=== PATIENT | female | born 1975 | race Caucasian/White ===

== ENCOUNTER 2016-12-19 16:40 | Emergency (ER) | payer MEDICAID ==
--- NOTE | 2016-12-19 17:07 | ER Document Report ---
ED Medical Screen (RME) - General Stated Complaint: COUGHING/WHEEZING Notes: 41 yo female c/o cough, headache x 2 weeks. daughter with + flu TRAVEL OUTSIDE OF THE [place] IN LAST 30 DAYS: No - Related Data Allergies/Adverse Reactions: No Known Allergies Allergy (Verified 04/25/16 11:42) Past Medical History GI Medical History: Reports: Hx Hiatal Hernia Musculoskeltal Medical History: Reports Hx Arthritis Past Surgical History: Reports: Hx Hysterectomy, Hx Tonsillectomy - Immunizations Hx Diphtheria, Pertussis, Tetanus Vaccination: Yes Physical Exam - Vital signs Vitals: Temp Pulse Resp BP Pulse Ox 98.0 F 110 H 16 138/82 H 95 12/19/16 16:48 12/19/16 16:48 12/19/16 16:48 12/19/16 16:48 12/19/16 16:48 Course - Vital Signs Vital signs: Temp Pulse Resp BP Pulse Ox 98.0 F 110 H 16 138/82 H 95 12/19/16 16:48 12/19/16 16:48 12/19/16 16:48 12/19/16 16:48 12/19/16 16:48
--- NOTE | 2016-12-19 18:30 | ER Document Report ---
HPI - HPI Patient complains to provider of: cough, congestioin, fever, wheeze Onset: Other - 2 weeks Quality of pain: Achy Pain Level: 2 Context: 41 yo smoker female with cough, congestion, wheeze, fever for 2 weeks. No SOB or chest pain. No abd. pain. Associated Symptoms: None Exacerbated by: Denies Relieved by: Denies Similar symptoms previously: No Recently seen / treated by doctor: No - ROS ROS below otherwise negative: Yes Systems Reviewed and Negative: Yes All other systems reviewed and negative Past Medical History - General Information source: Patient - Social History Smoking Status: Current Every Day Smoker Chew tobacco use (# tins/day): No Frequency of alcohol use: None Drug Abuse: None Lives with: Family Family History: Reviewed & Not Pertinent Patient has suicidal ideation: No Patient has homicidal ideation: No Renal/ Medical History: Denies: Hx Peritoneal Dialysis GI Medical History: Reports: Hx Hiatal Hernia Musculoskeltal Medical History: Reports Hx Arthritis Past Surgical History: Reports: Hx Hysterectomy, Hx Tonsillectomy - Immunizations Hx Diphtheria, Pertussis, Tetanus Vaccination: Yes Vertical Provider Document - CONSTITUTIONAL Agree With Documented VS: Yes Exam Limitations: No Limitations General Appearance: No Apparent Distress - INFECTION CONTROL TRAVEL OUTSIDE OF THE [place] IN LAST 30 DAYS: No - HEENT HEENT: Normocephalic, PERRLA, Pharyngeal Erythema. negative: Conjuctival Injection, Tympanic Membrane Red, Tympanic Membrane Bulging - NECK Neck: Supple, Lymphadenopathy-Left, Lymphadenopathy-Right - RESPIRATORY Respiratory: Breath Sounds Normal, No Respiratory Distress O2 Sat by Pulse Oximetry: 95 - CARDIOVASCULAR Cardiovascular: Regular Rate, Regular Rhythm - GI/ABDOMEN Gastrointestinal: Abdomen Soft, Abdomen Non-Tender, No Organomegaly - BACK Back: Normal Inspection - MUSCULOSKELETAL/EXTREMETIES Musculoskeletal/Extremeties: CORRINE NAVARRETE - NEURO Level of Consciousness: Awake, Alert - DERM Integumentary: Warm, Dry, No Rash Course - Vital Signs Vital signs: Temp Pulse Resp BP Pulse Ox 98.0 F 110 H 16 138/82 H 95 12/19/16 16:48 12/19/16 16:48 12/19/16 16:48 12/19/16 16:48 12/19/16 16:48 Discharge - Discharge Clinical Impression: Upper respiratory infection Qualifiers: URI type: unspecified URI Qualified Code(s): J06.9 - Acute upper respiratory infection, unspecified Condition: Good Disposition: HOME, SELF-CARE Instructions: Acetaminophen, Upper Respiratory Illness ([facility]), Inhaled Bronchodilators ([facility]), Stop Smoking ([facility]) Additional Instructions: stop smoking use the inhaler for the cough every 3 hours to er if worse see [facility] for follow up cool mist humidifier, wash it daily drink plenty of fluids Prescriptions: Albuterol Sulfate [Proair HFA Inhalation Aerosol 8.5 gm MDI] 2 puff IH Q3HP PRN #1 [email or web address] PRN Reason: Forms: Return to Work Referrals: JORJE FALLON, PREPARATION DEPARTMENT SUPERVISOR-C [Primary Care Provider] - Follow up as needed
[2016-12-19 19:13] VITALS: BP 113/76
== END 2016-12-19 19:09 | disposition home or self-care (01) ==
LOC: ER 16:40
DX: J06.9 Acute upper respiratory infection, unspecified (principal); R50.9 Fever, unspecified; R06.2 Wheezing; F17.200 Nicotine dependence, unspecified, uncomplicated; Z90.710 Acquired absence of both cervix and uterus
CPT/HCPCS: 99283

== ENCOUNTER 2018-04-05 23:59 | Emergency (ER) | payer MEDICAID ==
[2018-04-06 00:14] VITALS: BP 138/87
[2018-04-06] MEDS ORDERED: SULFAMETHOXAZOLE/TRIMETHOPRIM 800-160 MG TABLET PO ONE (00:54)
[2018-04-06] MEDS ORDERED: HYDROCODONE/ACETAMINOPHEN 5-325 MG (6 TAB/ER DISP) PO PRN (00:54)
[2018-04-06] MEDS ORDERED: IBUPROFEN 600 MG TABLET PO ONE (00:54)
--- NOTE | 2018-04-06 01:00 | ER Document Report ---
ED Skin Rash/Insect Bite/Abscs - General Chief Complaint: Abscess Stated Complaint: POSSIBLE INSECT BITE ON NECK Time Seen by Provider: 04/06/18 00:23 Mode of Arrival: Ambulatory Information source: Patient TRAVEL OUTSIDE OF THE [place] IN LAST 30 DAYS: No - HPI Patient complains to provider of: Tender/swollen area Notes: Patient is here with complaints of tender area to the left posterior neck. She states that it has been present for about a week now. She is not sure if she got bit by something or had an ingrown hair but it is gotten somewhat more sore over the last few days. She has attempted to drain it and states that she got some clear and bloody fluid from it but no purulent drainage. No fevers. No nausea, vomiting, diarrhea. No difficulty breathing or swelling. Pain is worse with touching the area as well as turning her head. No other rashes. She denies any other complaints at this time. - Related Data Allergies/Adverse Reactions: No Known Allergies Allergy (Verified 12/19/16 17:06) Past Medical History - Social History Smoking Status: Current Every Day Smoker Family History: Reviewed & Not Pertinent Renal/ Medical History: Denies: Hx Peritoneal Dialysis GI Medical History: Reports: Hx Hiatal Hernia Musculoskeltal Medical History: Reports Hx Arthritis Past Surgical History: Reports: Hx Hysterectomy, Hx Tonsillectomy - Immunizations Hx Diphtheria, Pertussis, Tetanus Vaccination: Yes Review of Systems - Review of Systems -: Yes All other systems reviewed and negative Physical Exam - Vital signs Vitals: Temp Pulse BP Pulse Ox 98.6 F 94 138/87 H 95 04/06/18 00:13 04/06/18 00:13 04/06/18 00:13 04/06/18 00:13 - Notes Notes: GENERAL: alert, cooperative, nontoxic, no distress. HEAD: normocephalic, atraumatic EYES: conjunctiva pink without discharge, no external redness or swelling. EARS: no external swelling, no external redness NOSE: atraumatic, no external swelling MOUTH/THROAT: mucous membranes moist and pink NECK: soft, supple, full range of motion, no meningismus. CHEST: no distress, lungs clear and equal throughout. No wheezing, rales, rhonchi. CARDIAC: regular rate and rhythm, no murmur, normal capillary refill, normal pulses. BACK: full range of motion, no CVA tenderness. EXTREMITIES: full range of motion of all extremities. No redness, no swelling. NEURO: alert and oriented 3, no focal deficits, full range of motion of all extremities. PYSCH: appropriate mood, affect. Patient is cooperative. SKIN: pink, warm, dry, no rash. 1 cm indurated abscess to the left posterior neck. Overlying redness with no significant surrounding cellulitis. No fluctuance. No drainage. Tender to palpation. Course - Re-evaluation Re-evalutation: 04/06/18 00:56 Patient is nontoxic-appearing with stable vitals. She is here with complaints of tender swollen area to the left posterior neck. Is been there for about a week. She attempted to pop it but not bloody fluid. He is noted to have an indurated early abscess to the left posterior neck. There is no fluctuance or drainage. There is no significant surrounding cellulitis. She is afebrile. She is nontoxic-appearing. Gave the patient the option of I&D versus antibiotics and warm compresses and follow-up if not improving. The patient states she would prefer to take medication and not do an I&D if she does not have to. The patient was given a dose of Bactrim and ibuprofen here in the emergency department. She will be discharged home with Bactrim. Instructed to apply warm compresses to the area. She will be given a prescription for Naprosyn and will be sent home with a [employer] dispense pack. She is instructed to follow-up if this does not seem to be improving in the next 2-3 days, but the follow-up sooner for worsening pain, fever, swelling or for any further concerns. The patient is noted to have elevated blood pressure during today's emergency department visit. The patient was informed of this finding. The patient was instructed that this may be related to pre-hypertension and requires further evaluation with a primary care provider. The patient has no hypertensive symptoms at this time. The patient's emergency department workup and current diagnosis were explained to the patient and or family. Follow-up instructions were provided. Medications if prescribed were discussed. Instructions for when to return to the emergency department including specific worrisome symptoms were discussed with the patient and/or family. - Vital Signs Vital signs: Temp Pulse Resp BP Pulse Ox 98.6 F 94 138/87 H 95 04/06/18 00:13 04/06/18 00:13 04/06/18 00:13 04/06/18 00:13 Discharge - Discharge Clinical Impression: Abscess, neck Condition: Stable Disposition: HOME, SELF-CARE Instructions: Abscess ([facility]), Oral Narcotic Medication ([facility]), Trimethoprim- Sulfa ([facility]) Additional Instructions: Take medication as prescribed. Apply warm compresses to sore area. Follow-up if not improved in the next 2-3 days, sooner for worsening pain, fever, swelling , persistent vomiting, difficulty breathing or swelling, or for any further concerns. Your blood pressure was elevated during today's visit. Have this rechecked with your doctor. The medication you were prescribed today may cause drowsiness. Do not drive or operate heavy machinery while taking this medication. Prescriptions: Naproxen [Naprosyn] 500 mg PO BID #20 tablet Sulfamethoxazole/Trimethoprim [Bactrim Ds Tablet] 1 each PO BID #20 tablet Forms: Elevated Blood Pressure, Smoking Cessation Education Referrals: MARÍA TYSON PA-C [Primary Care Provider] - Follow up as needed
== END 2018-04-06 02:08 | disposition home or self-care (01) ==
LOC: ER 23:59
DX: L02.11 Cutaneous abscess of neck (principal); R03.0 Elevated blood-pressure reading, without diagnosis of hypertension; F17.200 Nicotine dependence, unspecified, uncomplicated
CPT/HCPCS: 99282; J3490 ×2